=== PATIENT | male | born 1955 | race Caucasian/White ===

== ENCOUNTER 2016-08-04 10:15 | Inpatient (IN) | payer BC ==
[2016-08-04] VITALS (34 sets, daily range): BP systolic 101–154; BP diastolic 68–91
[~2016-08-04] VITALS: Ht 167.6 cm; Wt 87.1 kg
[~2016-08-04 10:15] MED LIST: ASPI-482 PO; LISI-334 PO; PRED-220 PO; RAMI10CA PO; SIMV10TA3 PO
[2016-08-04] MEDS ORDERED: HEPARIN for IV BOLUS 10,000 UNIT/10 ML VIAL. IV ONE (10:30)
[2016-08-04] MEDS ORDERED: fentaNYL PF VIAL 100 MCG/2 ML VIAL IV ONE (10:30)
--- NOTE | 2016-08-04 10:33 | PHYS DOC ---
Adult General Chief Complaint Chief Complaint: NEURO SYMPTOMS/DEFICITS HPI HPI Patient is a 61 year old male presenting to the emergency department for evaluation of expressive aphasia that started suddenly at 9:30 this morning while he was at work. He admits that he has had a prior stroke in December of last year but his right-sided weakness and expressive aphasia completely resolved and he has no residual deficits. The expressive aphasia is fairly severe to the point where he can really tell me his name and I was present during the NIH stroke scale and he cannot complete the reading of his phrases with any fluency. He has an NIH stroke scale of 2. I discussed the risks and benefits of TPA with the patient including and disability and he agreed to TPA as he did not want to have these residual deficits. I spoke to the neurologist sales receptionist Dr. Tejeda and he agreed with TPA as a stroke has been more than 3 months ago. Patient met no absolute contraindications so he was given TPA approximately 2 hours after his onset of symptoms. Review of Systems Review of Systems Constitutional: Denies fever or chills [] Eyes: Denies change in visual acuity, redness, or eye pain [] HENT: Denies nasal congestion or sore throat [] Respiratory: Denies cough or shortness of breath [] Cardiovascular: No additional information not addressed in HPI [] GI: Denies abdominal pain, nausea, vomiting, bloody stools or diarrhea [] : Denies dysuria or hematuria [] Musculoskeletal: Denies back pain or joint pain [] Integument: Denies rash or skin lesions [] Neurologic: Denies headache, focal weakness. + Expressive aphasia Current Medications Current Medications Current Medications Medications (Trade) Dose Ordered Sig/Felicity Start Time Stop Time Status Last Admin Dose Admin Alteplase, Recombinant 69.4 ml @ 69.4 mls/hr Q1H 08/04/16 11:00 08/04/16 11:59 DC 08/04/16 11:20 69.4 MLS/HR Fentanyl Citrate (Fentanyl 2ml Vial) 50 mcg PRN Q2HR PRN 08/04/16 11:00 08/05/16 10:59 Heparin Sodium (Porcine) (Heparin Sodium) 4,000 unit 1X ONCE 08/04/16 10:30 08/04/16 10:34 DC Info (Do NOT chart on this entry -- for MONITORING) 1 each PRN DAILY PRN 08/04/16 11:15 08/06/16 11:14 Iohexol (Omnipaque 300 Mg/ml) 75 ml 1X ONCE 08/04/16 11:15 08/04/16 11:16 DC Labetalol HCl (Normodyne) 10 mg PRN Q10MIN PRN 08/04/16 11:00 Nicardipine HCl 50 mg/Sodium Chloride 270 ml @ 27 mls/hr CONT PRN PRN 08/04/16 11:00 Ondansetron HCl (Zofran) 4 mg PRN Q8HRS PRN 08/04/16 11:00 08/05/16 10:59 Sodium Chloride 50 ml @ 0 mls/hr 1X ONCE 08/04/16 11:00 08/04/16 11:01 DC Allergies Allergies Allergies Coded Allergies Type Severity Reaction Last Updated Verified No Known Drug Allergies 01/12/16 No Physical Exam Physical Exam Constitutional: Well developed, well nourished, no acute distress, non-toxic appearance. [] HENT: Normocephalic, atraumatic, bilateral external ears normal, oropharynx moist, no oral exudates, nose normal. [] Eyes: PERRLA, EOMI, conjunctiva normal, no discharge. [] Neck: Normal range of motion, no tenderness, supple, no stridor. [] Cardiovascular:Heart rate regular rhythm, no murmur [] Lungs & Thorax: Bilateral breath sounds clear to auscultation [] Abdomen: Bowel sounds normal, soft, no tenderness, no masses, no pulsatile masses. [] Skin: Warm, dry, no erythema, no rash. [] Back: No tenderness, no CVA tenderness. [] Extremities: No tenderness, no cyanosis, no clubbing, ROM intact, no edema. [] Neurologic: Alert and oriented X 3, normal motor function. CN 2-12 intact. expressive aphasia. Current Patient Data Vital Signs Vital Signs Date Time Temp Pulse Resp B/P (MAP) Pulse Ox O2 Delivery O2 Flow Rate FiO2 08/04/16 10:15 98.5 85 20 146/93 (110) 97 Room Air 98.5 Lab Values Laboratory Tests Test 08/04/16 10:27 08/04/16 10:28 Glucose (Fingerstick) 114 mg/dL (70-99) H White Blood Count 11.7 x10^3/uL (4.0-11.0) H Red Blood Count 4.91 x10^6/uL (4.30-5.70) Hemoglobin 15.5 g/dL (13.0-17.5) Hematocrit 44.7 % (39.0-53.0) Mean Corpuscular Volume 91 fL (79-100) Mean Corpuscular Hemoglobin 32 pg (25-35) Mean Corpuscular Hemoglobin Concent 35 g/dL (31-37) Red Cell Distribution Width 14.3 % (11.5-14.5) Platelet Count 209 x10^3/uL (140-400) Neutrophils (%) (Auto) 82 % (31-73) H Lymphocytes (%) (Auto) 9 % (24-48) L Monocytes (%) (Auto) 8 % (0-9) Eosinophils (%) (Auto) 1 % (0-3) Basophils (%) (Auto) 1 % (0-3) Neutrophils # (Auto) 9.5 x10^3uL (1.8-7.7) H Lymphocytes # (Auto) 1.1 x10^3/uL (1.0-4.8) Monocytes # (Auto) 0.9 x10^3/uL (0.0-1.1) Eosinophils # (Auto) 0.1 x10^3/uL (0.0-0.7) Basophils # (Auto) 0.1 x10^3/uL (0.0-0.2) Prothrombin Time 12.6 SEC (11.7-14.0) Prothrombin Time INR 1.0 (0.8-1.1) PTT 26 SEC (24-38) Sodium Level 140 mmol/L (136-145) Potassium Level 4.3 mmol/L (3.5-5.1) Chloride Level 105 mmol/L (98-107) Carbon Dioxide Level 24 mmol/L (21-32) Anion Gap 11 (6-14) Blood Urea Nitrogen 26 mg/dL (8-26) Creatinine 1.1 mg/dL (0.7-1.3) Estimated GFR (Cockcroft-Gault) 68.1 BUN/Creatinine Ratio 24 (6-20) H Glucose Level 127 mg/dL (70-99) H Calcium Level 9.1 mg/dL (8.5-10.1) Magnesium Level 2.0 mg/dL (1.8-2.4) Total Bilirubin 0.5 mg/dL (0.2-1.0) Aspartate Amino Transferase (AST) 21 U/L (15-37) Alanine Aminotransferase (ALT) 28 U/L (16-63) Alkaline Phosphatase 81 U/L (46-116) Creatine Kinase 139 U/L (39-308) Troponin I Quantitative < 0.017 ng/mL (0.000-0.055) II-Tzn-M-Type Natriuretic Peptide 114 pg/mL (0-124) Total Protein 7.5 g/dL (6.4-8.2) Albumin 3.8 g/dL (3.4-5.0) Albumin/Globulin Ratio 1.0 (1.0-1.7) Lipase 129 U/L (73-393) Ethyl Alcohol Level < 10 mg/dL (0-10) Laboratory Tests 08/04/16 10:28 Laboratory Tests 08/04/16 10:28 EKG EKG Normal sinus rhythm at 87 bpm with leftward axis no obvious ST elevation or depression and normal T waves. Radiology/Procedures Radiology/Procedures Indication slurred speech. Code stroke. The Noncontrast images of the head were obtained. Note is made of an MRI examination 01/12/2016. No prior noncontrast CT head imaging of the head is available. Preliminary critical results were communicated to Dr. Medina, in the emergency room, at the time of dictation. The calvarium appears unremarkable. The visualized paranasal sinuses appear normal. There is no subdural or epidural hematoma. There is some modest underlying atrophy. There is a lucency in the left deep white matter, just above the lateral ventricle compatible with an old insult as demonstrated on the referenced MRI. No mass or midline shift is seen. No hemorrhage is apparent. No acute finding is seen. IMPRESSION: No acute finding seen on noncontrast images of the head PQRS Compliance Statement: One or more of the following individualized dose reduction techniques were utilized for this examination: 1. Automated exposure control 2. Adjustment of the mA and/or kV according to patient size 3. Use of iterative reconstruction technique DICTATED and SIGNED BY: SOPHIE FERREIRA MD DATE: 08/04/16 1028 Indication suspect CVA. Protocol study. A single view of the chest was obtained. No prior imaging of the chest is available. The heart, pulmonary vessels and mediastinum appear normal. The lungs are clear. There is no pleural fluid or pneumothorax. IMPRESSION: No acute or focal process is seen in the chest DICTATED and SIGNED BY: SOPHIE FERREIRA MD DATE: 08/04/16 1058 Course & Med Decision Making Course & Med Decision Making Patient with acute symptoms that will cause severe morbidity. tpa administered and his expressive aphasia seemed to be improving somewhat. Patient admitted to the ICU in guarded condition. CRITICAL CARE TIME OF 35 MINS. Dragon Disclaimer Dragon Disclaimer This electronic medical record was generated, in whole or in part, using a voice recognition dictation system. Departure Departure Impression: Primary Impression: Acute CVA (cerebrovascular accident) Disposition: ADMITTED INPATIENT Admitting Physician: Other (REUSCH) Condition: GUARDED Referrals: NO PCP (PCP) GEORGE MEDINA DO Aug 04, 2016 10:33
[2016-08-04 10:41] LABS: BASO # 0.1 x10^3/uL (0.0-0.2); BASO % 1 % (0-3); EOS % 1 % (0-3); HEMATOCRIT 44.7 % (39.0-53.0); HEMOGLOBIN 15.5 g/dL (13.0-17.5); LYMPH # 1.1 x10^3/uL (1.0-4.8); LYMPH % 9 % (24-48); MEAN CORPUSCULAR HEMOGLOBIN 32 pg (25-35); MEAN CORPUSCULAR HGB CONC 35 g/dL (31-37); MEAN CORPUSCULAR VOLUME 91 fL (79-100); MONO % 8 % (0-9); NEUT % 82 % (31-73); PLATELET COUNT 209 x10^3/uL (140-400); RED BLOOD COUNT 4.91 x10^6/uL (4.30-5.70); RED CELL DISTRIBUTION WIDTH 14.3 % (11.5-14.5); WHITE BLOOD COUNT 11.7 x10^3/uL (4.0-11.0)
[2016-08-04 10:50] LABS: CALCIUM 9.1 mg/dL (8.5-10.1); CREATININE 1.1 mg/dL (0.7-1.3); GFR 68.1; POTASSIUM 4.3 mmol/L (3.5-5.1); PROTHROMBIN TIME PATIENT 12.6 SEC (11.7-14.0)
[2016-08-04 10:56] LABS: ALBUMIN 3.8 g/dL (3.4-5.0); TOTAL BILIRUBIN 0.5 mg/dL (0.2-1.0); TOTAL PROTEIN 7.5 g/dL (6.4-8.2)
[2016-08-04] MEDS ORDERED: LABETALOL 20 MG/4 ML DISP.SYRIN. IV PRN (11:00)
[2016-08-04] MEDS ORDERED: fentaNYL PF VIAL 100 MCG/2 ML VIAL IV PRN (11:00)
[2016-08-04] MEDS ORDERED: ONDANSETRON PF 4 MG/2 ML VIAL. IV PRN (11:00)
[2016-08-04] MEDS ORDERED: ALTEPLASE 7.7 MG IV ONE (11:00)
[2016-08-04] MEDS ORDERED: IV NORMAL SALINE 50ML 50 ML IV ONE (11:00)
[2016-08-04] MEDS ORDERED: ALTEPLASE IV SCH (11:00)
--- NOTE | 2016-08-04 11:02 | RAD ---
Indication suspect CVA. Protocol study. A single view of the chest was obtained. No prior imaging of the chest is available. The heart, pulmonary vessels and mediastinum appear normal. The lungs are clear. There is no pleural fluid or pneumothorax. IMPRESSION: No acute or focal process is seen in the chest
[2016-08-04] MEDS ORDERED: IOHEXOL 300 MG/ML 75 ML VIAL IV ONE (11:15)
[2016-08-04] MEDS ORDERED: CONTRAST GIVEN MC PRN (11:15)
--- NOTE | 2016-08-04 12:52 | EKG ---
[facility] [address] [place] [address] Test Date: 2016-08-04 Test Time: 10:21:42 Pat Name: GEORGE CASEY Department: Room: 111 1 Gender: M Mill Manager: : 1955 Requested By: GEORGE MEDINA Order Number: [id number] Reading MD: Tamie Townsend Measurements Intervals [place] Rate: 87 P: 54 NC: 138 QRS: 2 QRSD: 94 T: 42 QT: 360 QTc: 434 Interpretive Statements SINUS RHYTHM LEFT ATRIAL ABNORMALITY Electronically Signed On 08-04-2016 21:28:26 CDT by Tamie Townsend
--- NOTE | 2016-08-04 14:28 | ACF ---
Admission Forms Criteria NEUROLOGY GRG Clinical Indications for Admission to Inpatient Care (Place ' X' for any and all applicable criteria): Hospital admission is needed for appropriate care of the patient because of 1 or more of the following: [ ]I. Encephalitis [ ]II. Severe [employer] infections indicated by 1 or more of the following(1)(2)(3) : [ ]a) Intracranial abscess [ ]b) Spinal abscess or myelitis [ ]c) Tuberculous or other nonbacterial, nonviral [employer] infection(8) [ ]III. Vasculitis and 1 or more of the following(14)(15): []a) Altered mental status that is severe or persistent or other acute neurologic change []b) Psychosis []c) Seizure [ ]IV. Status epilepticus or repetitive seizures not controlled with emergent treatment [A] (7)(8) [ ]V. Altered mental status that is severe or persistent [ ]. Transient alteration in consciousness with high-risk etiology; examples include (12)(13): [ ]a) Cardiovascular source [ ]b) Cataplexy [ ]VII. Cerebral aneurysm requiring ANY ONE of the following(14): [ ]a) IV antihypertensives or vasoactive agents [ ]b) Sedation and analgesia for suspected leak [ ]c) Need for external ventricular drainage and cerebral perfusion pressure monitoring [ ]d) Emergent evaluation to determine need for surgical clipping or endovascular coiling by interventional radiology. If surgery is required ( Also use Craniotomy, Supratentorial, for Surgery of Bleeding Intracranial Aneurysm (for bleeding aneurysm) or Craniotomy, Supratentorial (for nonbleeding aneurysm) as appropriate. [X]VIII. New-onset severe neurologic symptom requiring inpatient care indicated by ANY ONE of the following: [X]a) Aphasia(15) [ ]b) Weakness (grade 3 or less) [ ]c) Paralysis (eg, hemiplegia) [ ]d) Spasticity(16) [ ]e) Dystonia [ ]e) Ataxia(17) [ ]f) Amnesia(18) [ ]g) Involuntary movements(19) [ ]h) Vertigo [ ] Visual loss [ ]i) Other severe neurologic finding (eg, papilledema, mass effect on imaging, myoclonus not treatable at alternative level of care (eg, observation care) [ ]IX. Guillain-[place] syndrome(20) [ ]X. Myasthenia gravis crisis or inpatient monitoring need as indicated by 1 or more of the following(21): [ ]a) Intensive treatment (eg, course of plasmapheresis) with inadequate outpatient situation to monitor patients status [ ]b) Inadequate airway protection [ ]c) Respiratory insufficiency requiring intubation or inpatient. monitoring [ ]d) Progressive dysphagia with failure to thrive [ ]XI. Multiple sclerosis or other acute demyelinating disease requiring inpatient care as indicated by 1 or more of the following (22)(23): [ ]a) Acute severe deterioration requiring inpatient treatment (eg, IV steroids, plasmapheresis, close observation) [ ]b) Acute complication requiring inpatient care (eg, sepsis, severe decubitus, aspiration) [ ]XII.Parkinson disease requiring inpatient care (Also use Optimal Recovery Care Criteria or General Recovery Criteria as appropriate) indicated by 1 or more of the following(25): [ ]a) Infection (eg, aspiration pneumonia) not treatable at alternative level of care [ ]b Dehydration that is severe or persistent [ ]c) Life-threatening agitation or psychotic behavior not treatable on emergency, observation care, or alternative level (eg, residential) basis [ ]d) Severe medication withdrawal effects (eg, freezing, neuroleptic malignant syndrome) not responsive to emergency and observation care treatment ( as appropriate) [ ]e) Other severe manifestation not treatable at alternative level of care [ ]XII. Amyotrophic lateral sclerosis with inpatient care needs as indicated by ANY ONE of the following(26): [ ]a) Acute complications (eg, aspiration pneumonia, sepsis ) requiring inpatient care ( see other optimal Recovery Guideline as appropriate) [ ]b) Dehydration that is severe persistent AND artificial support desired [ ]c) Inadequate airway protection AND artificial support desired [ ]d) Severe ventilatory insufficiency AND artificial support desired [ ]XIII. Myasthenia gravis crisis or inpatient monitoring need as indicated by 1 or more of the following(21): [] a) Inadequate airway protection []b) Respiratory insufficiency requiring intubation or inpatient monitoring []c) Progressive dysphagia with failure to thrive []d) Intensive treatment (e.g., course of plasmapheresis) with inadequate outpatient situation to monitor patients status [ ]XIV. Multiple sclerosis or other acute demyelinating disease requiring inpatient care indicated by 1 or more of the following[C](36)(43)(44)(45)(46): []a) Acute severe deterioration requiring inpatient treatment (eg, IV steroids, plasmapheresis, close observation) []b) Acute complication requiring inpatient care (eg, sepsis, severe decubitus, aspiration) [ ]XV. Intracranial hypertension (e.g., pseudotumor cerebri) requiring inpatient care (e.g., acute visual loss, inadequate oral intake) (47)(48)(49) [ ]XVI. Parkinson disease requiring inpatient care (Also use Optimal Recovery Care Criteria or General Recovery Criteria as appropriate) indicated by 1 or more of the following(25): [] a) Infection (e.g., aspiration pneumonia) not treatable at alternative level of care []b) Volume depletion not responsive to emergency and observation care treatment (as appropriate) []c) Life-threatening agitation or psychotic behavior not treatable on emergency, observation care, or alternative level (e.g., residential) basis []d) Severe medication withdrawal effects (e.g., freezing, neuroleptic malignant syndrome) not responsive to emergency and observation care treatment (as appropriate) []e) Other severe manifestation not treatable at alternative level of care [ ]XVII. Amyotrophic lateral sclerosis with inpatient care needs as indicated by1 or more of the following(42): []a) Acute complications (eg, aspiration pneumonia, sepsis) requiring inpatient care (see other Optimal Recovery Guideline or General Recovery Guideline as appropriate) []b) Dehydration that is severe or persistent AND artificial support desired []c) Inadequate airway protection AND artificial support desired []d) Severe ventilatory insufficiency AND artificial support desired [ ]XVIII. Severe myopathy, neuropathy, or other neuromuscular disease indicated by 1 or more of the following(42)(52)(53)(54): []a ) New-onset severe diffuse weakness (eg, strength 3/5 or less) []b) Severe dysphagia []c) Dyspnea at rest or with minimal exertion (new) []d) Inadequate airway protection []e) Inadequate ventilation indicated by 1 or more of the following : i) Partial pressure of carbon dioxide greater than 44 mm Hg ( 5.9 kPa) (new) ii) Reduced peak expiratory flow rate (new) iii) Vital capacity less than 50% of predicted (less than 15 mL/kg) iv) Peak inspiratory force less negative than -30 cm H2O (- 2942 Pa) [ ]XVII.Complications of congenital or degenerative disease (eg, infection, seizures, dehydration, injury) not responsive to emergency and observation care treatment (as appropriate ) [C](16)(29)(30) [ ]XVIII.Suspected or confirmed nerve or muscle toxic injury, including ANY ONE of the following: [ ]a) Rhabdomyolysis(31) i) Acute renal failure ii) Dehydration that is severe or persistent iii) Altered mental status that is severe or persistent iv) Electrolyte abnormality that remains after emergency or observation level care ( as appropriate) [ ]b) Botulism(32) [ ]c) Other severe toxin-induced sign or symptom [ ]XIX. Neurologic trauma requiring inpatient treatment (medical) indicated by ANY ONE of the following(33)(34): [ ]a) Vital signs or neurologic signs more frequently than every 4 hours [ ]b) Hyperosmolar therapy [ ]c) Respiratory monitoring [ ]d) Intracranial pressure monitoring and treatment [ ]e) Stabilization and immobilization device placement (eg, braces, body jacket) [ ]f) Intubation & mechanical ventilation for airway protection or therapeutic hyperventilation [ ]g) Other treatment or monitoring needed that requires inpatient level of care [ ]XX.Complications of neurologic devices (eg, ventricular shunt, neurostimulator) requiring 1 or more of the following(35)(36): [ ]a) IV antibiotics with monitoring while awaiting culture results [ ]b) Monitoring for hydrocephalus [ ]XXI. Neurology condition symptom, or finding for which emergency and observation care have failed or are not considered appropriate. See General Criteria: Observation Care ISC, General Admission Criteria GRG, or Pediatric General Admission Criteria GRG guideline as appropriate. The original [facility] [employer] content created by [facility] has been revised. The portions of the content which have been revised are identified through the use of italic text or in bold, and [facility] has neither reviewed nor approved the modified material. All other unmodified content is copyright [facility] Please see references footnoted in the original [facility] edition 2016 Admission Criteria Met?: Yes YAKELIN MCCLAIN Aug 04, 2016 14:28
--- NOTE | 2016-08-04 14:39 | RAD ---
Indication CVA. Slurred speech. CTA targeted to the major vessels off the arch of the aorta, internal carotid, common carotid arteries and the [place] was performed. Approximately 75 cc of Omnipaque 300 was administered. Images were generated in the sagittal planes and reviewed. Volume rendered images were also generated. Note is made of a noncontrast CT head examination performed approximately 3 hours prior to this exam. No significant finding is seen at either lung apex. The visualized mediastinum appears unremarkable. A significant soft tissue finding in the neck is not seen. There is some mucosal thickening seen associated with the maxillary sinuses left greater than right. Mild sinusitis is not excluded. No significant bony finding is seen. The innominate artery, left common carotid and left subclavian arteries originate unremarkably off the arch of the aorta. The innominate and left common carotid appear to have a common trunk. The innominate artery bifurcates unremarkably into the right common carotid and right subclavian. Those regions of both subclavian arteries which are seen appear unremarkable. The right common carotid is normal. There is no significant plaquing at the bifurcation. There is no stenosis. The internal carotid is unremarkable. The horizontal and cavernous portions appear unremarkable and the supraclinoid segment also appears normal. The left common carotid is also unremarkable. There is no significant calcification at the bifurcation and there is no significant stenosis. Internal carotid also is normal. The horizontal and cavernous and supraclinoid segments appear unremarkable. The vertebrals originate unremarkably off their respective subclavian arteries. The right vertebral is dominant. The basilar artery appears unremarkable. There is no significant anomaly seen at the [place]. The A1 and M1 segments appear unremarkable. Anterior cerebrals are seen. No significant anomaly is seen in the posterior fossa. IMPRESSION: No acute or significant vascular anomaly seen. Note: Stenosis calculations for CT, MR and conventional angiography are based upon determination of the distal ICA diameter in accordance with the NASCET methodology. Stenosis calculations for doppler studies are derived from validated velocity criteria which are known to correlate with NASCET methodology of determining stenosis. .
[2016-08-04 15:07] LABS: CHOLESTEROL/HDL RATIO 4.6
--- NOTE | 2016-08-04 15:14 | PDOC2 ---
CONSULT Date of Consult Date of Consult DATE: 08/04/16 TIME: 15:08 Reason for Consult Reason for Consult: "Stroke. Code History of Present Illness Reason for Visit: This patient is 61-year-old man who presented to emergency room with complaint of expressive aphasia, difficulty speaking. Patient reports he wake up around 4 in the morning he was fine does not have any difficulty speaking he was at work and suddenly he was not able to speak he has been previously evaluated in December 2015 for ischemic stroke.He does not have any history of intracranial hemorrhage. He presented to emergency room as a stroke activation. He was within the window for IV TPA. He did not have any contraindications. Patient agreed to to risk and benefit for IV TPA. Patient was admitted to ICU for further monitoring. Status post-TPA stroke orders side effect were activated. CVA status post TPA. Past Medical History Cardiovascular: HTN GI: No pertinent hx Heme/Onc: No pertinent hx Hepatobiliary: No pertinent hx Psych: No pertinent hx Rheumatologic: Rheumatoid arthritis Infectious disease: No pertinent hx Renal/: No pertinent hx Endocrine: No pertinent hx Past Surgical History Past Surgical History: No pertinent history Family History Family History: No Significant Social History ALCOHOL: rare Drugs: None Current Medications Current Medications Current Medications Fentanyl Citrate (Fentanyl 2ml Vial) 75 mcg 1X ONCE IV ; Start 08/04/16 at 10: 30; Stop 08/04/16 at 10:34; Status DC Heparin Sodium (Porcine) (Heparin Sodium) 4,000 unit 1X ONCE IV ; Start at 10:30; Stop 08/04/16 at 10:34; Status DC Alteplase, Recombinant 7.7 ml @ 462 mls/hr 1X ONCE IV Last administered on t 11:19; Start 08/04/16 at 11:00; Stop 08/04/16 at 11:01; Status DC Alteplase, Recombinant 69.4 ml @ 69.4 mls/hr Q1H IV Last administered on t 11:20; Start 08/04/16 at 11:00; Stop 08/04/16 at 11:59; Status DC Sodium Chloride 50 ml @ 0 mls/hr 1X ONCE IV ; Start 08/04/16 at 11:00; Stop 01/10 at 11:01; Status DC Labetalol HCl (Normodyne) 10 mg PRN Q10MIN PRN IV HYPERTENSION, SEE COMMENTS; Start 08/04/16 at 11:00 Nicardipine HCl 50 mg/Sodium Chloride 270 ml @ 27 mls/hr CONT PRN PRN IV HYPERTENSION, SEE COMMENTS; Start 08/04/16 at 11:00 Ondansetron HCl (Zofran) 4 mg PRN Q8HRS PRN IV NAUSEA/VOMITING; Start 08/04/16 at 11:00; Stop 08/05/16 at 10:59 Fentanyl Citrate (Fentanyl 2ml Vial) 50 mcg PRN Q2HR PRN IV PAIN; Start at 11:00; Stop 08/05/16 at 10:59 Iohexol (Omnipaque 300 Mg/ml) 75 ml 1X ONCE IV Last administered on 08/04/16t 11:15; Start 08/04/16 at 11:15; Stop 08/04/16 at 11:16; Status DC Info (Do NOT chart on this entry -- for MONITORING) 1 each PRN DAILY PRN MC SEE COMMENTS; Start 08/04/16 at 11:15; Stop 08/06/16 at 11:14 Active Scripts Active Aspir 81 (Aspirin) 81 Mg Tablet. 81 Mg PO DAILY Simvastatin 10 Mg Tablet 10 Mg PO QHS Lisinopril 20 Mg Tablet 20 Mg PO DAILY Reported Prednisone 10 Mg Tablet 10 Mg PO DAILY Allergies Allergies: Coded Allergies: No Known Drug Allergies (Unverified , 01/12/16) Physical Exam Physical Exam REVIEW OF SYSTEMS: Otherwise, not [id number] review of systems. PHYSICAL EXAMINATION: General appearance is in acute distress. HEENT: Normocephalic and nontraumatic. Eyes, nose, ears, and throat are unremarkable. Neck is supple. No lymphadenopathy. No crepitus. Cardiovascular: S1, S2, regular rate and rhythm. Pulmonary: Clear to auscultation bilaterally. Abdomen: Bowel sounds are positive. Abdomen is soft, nontender, and nondistended. NEUROLOGICAL EXAMINATION: Alert Oriented to time, place and person. PERRL. EOMI. CN: no focal findings.+ Dysarthria Muscle tone: within normal. Muscle strength: 5 DTR: 1-2 Plantar reflex: Flexor response bilaterally Gait: not examined in bed. Sensory exam: no abnormal findings. No obvious cerebellar signs elicited. Vitals VITALS Vital Signs Date Time Temp Pulse Resp B/P (MAP) Pulse Ox O2 Delivery O2 Flow Rate FiO2 08/04/16 14:00 80 131/69 (89) 94 Room Air 08/04/16 12:30 20 08/04/16 12:13 98.3 98.3 Labs Labs Laboratory Tests Test 08/04/16 10:27 08/04/16 10:28 Glucose (Fingerstick) 114 mg/dL (70-99) White Blood Count 11.7 x10^3/uL (4.0-11.0) Red Blood Count 4.91 x10^6/uL (4.30-5.70) Hemoglobin 15.5 g/dL (13.0-17.5) Hematocrit 44.7 % (39.0-53.0) Mean Corpuscular Volume 91 fL (79-100) Mean Corpuscular Hemoglobin 32 pg (25-35) Mean Corpuscular Hemoglobin Concent 35 g/dL (31-37) Red Cell Distribution Width 14.3 % (11.5-14.5) Platelet Count 209 x10^3/uL (140-400) Neutrophils (%) (Auto) 82 % (31-73) Lymphocytes (%) (Auto) 9 % (24-48) Monocytes (%) (Auto) 8 % (0-9) Eosinophils (%) (Auto) 1 % (0-3) Basophils (%) (Auto) 1 % (0-3) Neutrophils # (Auto) 9.5 x10^3uL (1.8-7.7) Lymphocytes # (Auto) 1.1 x10^3/uL (1.0-4.8) Monocytes # (Auto) 0.9 x10^3/uL (0.0-1.1) Eosinophils # (Auto) 0.1 x10^3/uL (0.0-0.7) Basophils # (Auto) 0.1 x10^3/uL (0.0-0.2) Prothrombin Time 12.6 SEC (11.7-14.0) Prothromb Time International Ratio 1.0 (0.8-1.1) Activated Partial Thromboplast Time 26 SEC (24-38) Sodium Level 140 mmol/L (136-145) Potassium Level 4.3 mmol/L (3.5-5.1) Chloride Level 105 mmol/L (98-107) Carbon Dioxide Level 24 mmol/L (21-32) Anion Gap 11 (6-14) Blood Urea Nitrogen 26 mg/dL (8-26) Creatinine 1.1 mg/dL (0.7-1.3) Estimated GFR (Cockcroft-Gault) 68.1 BUN/Creatinine Ratio 24 (6-20) Glucose Level 127 mg/dL (70-99) Calcium Level 9.1 mg/dL (8.5-10.1) Magnesium Level 2.0 mg/dL (1.8-2.4) Total Bilirubin 0.5 mg/dL (0.2-1.0) Aspartate Amino Transf (AST/SGOT) 21 U/L (15-37) Alanine Aminotransferase (ALT/SGPT) 28 U/L (16-63) Alkaline Phosphatase 81 U/L (46-116) Creatine Kinase 139 U/L (39-308) Troponin I Quantitative < 0.017 ng/mL (0.000-0.055) CB-Rtk-Z-Type Natriuretic Peptide 114 pg/mL (0-124) Total Protein 7.5 g/dL (6.4-8.2) Albumin 3.8 g/dL (3.4-5.0) Albumin/Globulin Ratio 1.0 (1.0-1.7) Triglycerides Level 89 mg/dL (0-150) Cholesterol Level 221 mg/dL (0-200) LDL Cholesterol, Calculated 155 mg/dL (0-100) VLDL Cholesterol, Calculated 18 mg/dL (0-40) Non-HDL Cholesterol Calculated 173 mg/dL (0-129) HDL Cholesterol 48 mg/dL (40-60) Cholesterol/HDL Ratio 4.6 Lipase 129 U/L (73-393) Ethyl Alcohol Level < 10 mg/dL (0-10) Laboratory Tests Test 08/04/16 10:27 08/04/16 10:28 Glucose (Fingerstick) 114 mg/dL (70-99) White Blood Count 11.7 x10^3/uL (4.0-11.0) Red Blood Count 4.91 x10^6/uL (4.30-5.70) Hemoglobin 15.5 g/dL (13.0-17.5) Hematocrit 44.7 % (39.0-53.0) Mean Corpuscular Volume 91 fL (79-100) Mean Corpuscular Hemoglobin 32 pg (25-35) Mean Corpuscular Hemoglobin Concent 35 g/dL (31-37) Red Cell Distribution Width 14.3 % (11.5-14.5) Platelet Count 209 x10^3/uL (140-400) Neutrophils (%) (Auto) 82 % (31-73) Lymphocytes (%) (Auto) 9 % (24-48) Monocytes (%) (Auto) 8 % (0-9) Eosinophils (%) (Auto) 1 % (0-3) Basophils (%) (Auto) 1 % (0-3) Neutrophils # (Auto) 9.5 x10^3uL (1.8-7.7) Lymphocytes # (Auto) 1.1 x10^3/uL (1.0-4.8) Monocytes # (Auto) 0.9 x10^3/uL (0.0-1.1) Eosinophils # (Auto) 0.1 x10^3/uL (0.0-0.7) Basophils # (Auto) 0.1 x10^3/uL (0.0-0.2) Prothrombin Time 12.6 SEC (11.7-14.0) Prothromb Time International Ratio 1.0 (0.8-1.1) Activated Partial Thromboplast Time 26 SEC (24-38) Sodium Level 140 mmol/L (136-145) Potassium Level 4.3 mmol/L (3.5-5.1) Chloride Level 105 mmol/L (98-107) Carbon Dioxide Level 24 mmol/L (21-32) Anion Gap 11 (6-14) Blood Urea Nitrogen 26 mg/dL (8-26) Creatinine 1.1 mg/dL (0.7-1.3) Estimated GFR (Cockcroft-Gault) 68.1 BUN/Creatinine Ratio 24 (6-20) Glucose Level 127 mg/dL (70-99) Calcium Level 9.1 mg/dL (8.5-10.1) Magnesium Level 2.0 mg/dL (1.8-2.4) Total Bilirubin 0.5 mg/dL (0.2-1.0) Aspartate Amino Transf (AST/SGOT) 21 U/L (15-37) Alanine Aminotransferase (ALT/SGPT) 28 U/L (16-63) Alkaline Phosphatase 81 U/L (46-116) Creatine Kinase 139 U/L (39-308) Troponin I Quantitative < 0.017 ng/mL (0.000-0.055) YZ-Fzq-D-Type Natriuretic Peptide 114 pg/mL (0-124) Total Protein 7.5 g/dL (6.4-8.2) Albumin 3.8 g/dL (3.4-5.0) Albumin/Globulin Ratio 1.0 (1.0-1.7) Triglycerides Level 89 mg/dL (0-150) Cholesterol Level 221 mg/dL (0-200) LDL Cholesterol, Calculated 155 mg/dL (0-100) VLDL Cholesterol, Calculated 18 mg/dL (0-40) Non-HDL Cholesterol Calculated 173 mg/dL (0-129) HDL Cholesterol 48 mg/dL (40-60) Cholesterol/HDL Ratio 4.6 Lipase 129 U/L (73-393) Ethyl Alcohol Level < 10 mg/dL (0-10) Assessment/Plan Assessment/Plan This patient is 61-year-old man who presented to emergency room with complaint of expressive aphasia, difficulty speaking. Patient reports he wake up around 4 in the morning he was fine does not have any difficulty speaking he was at work and suddenly he was not able to speak he has been previously evaluated in December 2015 for ischemic stroke.He does not have any history of intracranial hemorrhage. He presented to emergency room as a stroke activation. He was within the window for IV TPA. He did not have any contraindications. Patient agreed to to risk and benefit for IV TPA. Patient was admitted to ICU for further monitoring. Status post-TPA stroke orders side effect were activated. CVA status post TPA. Patient will get MRI brain to further evaluate. CT brain did not show any acute intracranial process. CTA head and neck did not show any acute vascular process. All significant stenosis. If images at 24-hour done did not show any acute hemorrhage patient will be started on antiplatelet agent. Lipid profile statin CTA head and neck. PTOT evaluation 2-D echo with bubble study Continue medical management. DAJA KWAN MD Aug 04, 2016 15:14
[2016-08-04] MEDS ORDERED: SIMVASTATIN 10 MG TABLET PO SCH (21:00)
[2016-08-05] VITALS (19 sets, daily range): BP systolic 101–154; BP diastolic 67–93
--- NOTE | 2016-08-05 02:18 | HP ---
ADMIT DATE: 08/04/2016 CHIEF COMPLAINT: Aphasia. 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 The aphasia was fairly dense, and a discussion with Neurology, a TPA was administered. His language skills returned without any impediment. He is now in the ICU for further monitoring after TPA. PAST MEDICAL HISTORY: CAD status post stent placement in 2002, CVA in 12/2015, hypertension, hypercholesterolemia and rheumatoid arthritis. FAMILY HISTORY: Essentially negative. One brother with congenital heart disease, . SOCIAL HISTORY: Lives with his . Quit smoking one year ago, works in maintenance. No alcohol or drugs. ALLERGIES: No known drug allergies. MEDICATIONS: MAR reconciled with home medications. REVIEW OF SYSTEMS: Aphasia has completely resolved. No other neurological symptoms present. Rest of organ system review is negative as well. PHYSICAL EXAMINATION: VITAL SIGNS: From today show a blood pressure of 122/75, heart rate of 79, and respiratory rate at 20. He is afebrile. GENERAL: This is a 61-year-old obese gentleman, alert and oriented, in no acute distress. HEENT: Shows no scleral icterus. NECK: Supple. LUNGS: Clear. HEART: Regular rate and rhythm. ABDOMEN: Obese, positive bowel sounds. EXTREMITIES: Show no edema. SKIN: Slightly reddened at face and neck. LABORATORY DATA: CBC with a WBC of 11.7, hemoglobin of 15.5, and platelets of 209. Chemistries with a BUN and creatinine of 26 and 1.1. Electrolytes within normal limits. Glucose at 127. LFTs within normal. Cholesterol at 221, LDL at 155. IMAGING STUDIES: CTA of head and neck, no acute or significant vascular anomaly is seen. ASSESSMENT AND PLAN: The patient is a 61-year-old gentleman with sudden onset aphasia consistent with stroke. He is now status post TPA with resolution of his symptoms. No sign of bleeding. Continue monitoring in the Intensive Care Unit for the time being. He had been on aspirin, statin as well as blood pressure medications prior to this event secondary to previous cerebrovascular accident in recent past. Cholesterol still very poorly controlled. We will increase medications. His lipid profile needs to be checked on an outpatient basis. Given his second seizure on baby aspirin, anticipate expansion of regimen to Plavix. We will leave this to Neurology. MRI and echocardiogram with bubble study have been requested. RAI BROWN MD DR: UR/nts JOB#: [id number] / [id number]
[2016-08-05 04:56] LABS: BASO # 0.1 x10^3/uL (0.0-0.2); BASO % 1 % (0-3); EOS % 6 % (0-3); HEMATOCRIT 42.6 % (39.0-53.0); HEMOGLOBIN 14.2 g/dL (13.0-17.5); LYMPH # 2.1 x10^3/uL (1.0-4.8); LYMPH % 23 % (24-48); MEAN CORPUSCULAR HEMOGLOBIN 32 pg (25-35); MEAN CORPUSCULAR HGB CONC 33 g/dL (31-37); MEAN CORPUSCULAR VOLUME 94 fL (79-100); MONO % 13 % (0-9); NEUT % 57 % (31-73); PLATELET COUNT 158 x10^3/uL (140-400); RED BLOOD COUNT 4.52 x10^6/uL (4.30-5.70); WHITE BLOOD COUNT 8.9 x10^3/uL (4.0-11.0)
[2016-08-05 05:12] LABS: CALCIUM 8.5 mg/dL (8.5-10.1); CREATININE 1.1 mg/dL (0.7-1.3); GFR 68.1
[2016-08-05] MEDS ORDERED: LISINOPRIL 20 MG TABLET PO SCH (09:00)
[2016-08-05] MEDS ORDERED: ASPIRIN ENTERIC COATED 81 MG TABLET.DR. PO SCH (09:00)
[2016-08-05] MEDS ORDERED: predniSONE 10 MG TABLET PO SCH (09:00)
--- NOTE | 2016-08-05 12:56 | RAD ---
MRI Brain without contrast History: Slurred speech, right-sided weakness, post TPA Technique: Axial diffusion, axial gradient echo T2, axial T2, axial FLAIR, sagittal and axial T1, and coronal T2 weighted images were acquired of the brain. Contrast: None Comparison: January 12, 2016 Findings: There is a 4 mm focus of restricted diffusion of the left parietal cortex, also 4 mm focus of diffusion signal abnormality of the left frontal cortex difficult to characterize on ADC map, associated mild FLAIR hyperintense signal. There is no midline shift or extra-axial fluid collection. There is no new significant hemosiderin deposition of the brain parenchyma, limited evaluation of the beny due to motion artifact. Ventricular size is stable. There is again mild generalized supratentorial atrophy. There are old lacunar infarcts of the left sierra radiata as seen previously, other scattered mild T2 and FLAIR hyperintense signal abnormality of the supratentorial white matter. There is persistent jywr-ig-ebihgcit left maxillary sinus mucosal thickening, to a lesser degree on the right. There is again mild sphenoid sinus mucosal thickening greater on the left, associated mucous retention cyst on the right inferiorly up to 1.3 cm. There is patchy ethmoid air cell mucosal thickening greatest inferiorly on the right, decreased on the left in the interval. There is patchy mild fluid and thickening of the left mastoid air cells inferiorly as seen previously. Impression: 1. There is a recent very small acute infarct of the left parietal cortex, also small focus of signal abnormality of the left frontal cortex suspicious for recent, likely early subacute infarct. There are other old lacunar infarcts, also other scattered relatively mild T2 and FLAIR hyperintense signal abnormality likely due to chronic microvascular ischemic disease. 2. There is paranasal sinus mucosal thickening as stated. FOR INTERNAL CODING PURPOSES Critical result: Findings discussed with patient's nurse Mery at 08/05/2016 12:52 PM. RESULT CODE: (C) Electronically signed by: Raudel Rey MD (08/05/2016 12:52 PM)
--- NOTE | 2016-08-05 13:17 | CARD ---
APPROVED REPORT EXAM: Two-dimensional and M-mode echocardiogram with Doppler and color Doppler. Other Information Quality : Good INDICATION CVA/TIA 2D DIMENSIONS RVDd2.8 (2.9-3.5cm)Left Atrium(2D)3.4 (1.6-4.0cm) IVSd1.0 (0.7-1.1cm)Aortic Root(2D)3.0 (2.0-3.7cm) LVDd4.9 (3.9-5.9cm)LVOT Diameter2.0 (1.8-2.4cm) PWd1.1 (0.7-1.1cm)LVDs3.0 (2.5-4.0cm) FS (%) 30.0 %SV77.5 ml LVEF(%)60.0 (>50%) Aortic Valve AoV Peak Bob.123.7cm/sAoV VTI20.0cm AO Peak GR.6.1mmHgLVOT VTI 17.09cm AO Mean GR.3mmHgAVA (VTI)2.70cm2 Mitral Valve MV E Ornlcjie55.6cm/sMV DECEL [id number] MV A Tqfetugc26.9cm/sE/A Ratio0.8 TDI Lateral E' P. V8.80cm/sMedial E' P. V8.02cm/s E/Lateral E'7.1E/Medial E'7.8 Pulmonary Vein S1 Wwgerbam36.5cm/sS2 Akepjcxu48.02cm/s D2 Mwhvcphh29.0cm/sPVa [id number] LEFT VENTRICLE The left ventricle is normal size. There is normal left ventricular wall thickness. The left ventricu lar systolic function is normal. The Ejection Fraction is 55-60%. There is normal LV segmental wall m otion. Transmitral Doppler flow pattern is Grade I-abnormal relaxation pattern. RIGHT VENTRICLE The right ventricle is normal size. The right ventricular systolic function is normal. ATRIA The left atrium size is normal. The right atrium size is normal. The interatrial septum is intact wit h no evidence for an atrial septal defect or patent foramen ovale as noted on 2-D or Doppler imaging. AORTIC VALVE The aortic valve is normal in structure and function. Doppler and Color Flow revealed physiological a ortic regurgitation. There is no significant aortic valvular stenosis. MITRAL VALVE The mitral valve is normal in structure and function. There is no evidence of mitral valve prolapse. There is no mitral valve stenosis. Doppler and Color-flow revealed trace to mild mitral regurgitation . TRICUSPID VALVE The tricuspid valve is normal in structure and function. Doppler and Color Flow revealed no tricuspid valve regurgitation noted. There is no tricuspid valve stenosis. PULMONIC VALVE The pulmonary valve is normal in structure and function. Doppler and Color Flow revealed no pulmonic valvular regurgitation. There is no pulmonic valvular stenosis. GREAT VESSELS The aortic root is normal in size. The ascending aorta is normal in size. The IVC is normal in size a nd collapses >50% with inspiration. PERICARDIAL EFFUSION There is no evidence of significant pericardial effusion. Critical Notification Critical Value: No <Conclusion> The left ventricular systolic function is normal. The Ejection Fraction is 55-60%. There is normal LV segmental wall motion. Transmitral Doppler flow pattern is Grade I-abnormal relaxation pattern. Doppler and Color-flow revealed trace to mild mitral regurgitation. There is no evidence of significant pericardial effusion.
[2016-08-05] MEDS ORDERED: CLOPIDOGREL BISULFATE 75 MG TABLET PO SCH (14:00)
--- NOTE | 2016-08-05 14:04 | PDOC ---
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 US carotid pending echo normal LVEF Bedside swallow. PT/OT History of Present Illness History of Present Illness doing better no fever no chills Vitals Vitals Vital Signs Date Time Temp Pulse Resp B/P (MAP) Pulse Ox O2 Delivery O2 Flow Rate FiO2 08/05/16 13:01 65 19 128/80 (96) 97 Room Air 08/05/16 12:15 98.1 98.1 Physical Exam General: Alert, Oriented X3 Heart: Normal S1, Normal S2 Lungs: Clear Abdomen: Normal bowel sounds, Soft Labs LABS Laboratory Tests Test 08/05/16 04:40 White Blood Count 8.9 x10^3/uL (4.0-11.0) Red Blood Count 4.52 x10^6/uL (4.30-5.70) Hemoglobin 14.2 g/dL (13.0-17.5) Hematocrit 42.6 % (39.0-53.0) Mean Corpuscular Volume 94 fL (79-100) Mean Corpuscular Hemoglobin 32 pg (25-35) Mean Corpuscular Hemoglobin Concent 33 g/dL (31-37) Red Cell Distribution Width 14.0 % (11.5-14.5) Platelet Count 158 x10^3/uL (140-400) Neutrophils (%) (Auto) 57 % (31-73) Lymphocytes (%) (Auto) 23 % (24-48) Monocytes (%) (Auto) 13 % (0-9) Eosinophils (%) (Auto) 6 % (0-3) Basophils (%) (Auto) 1 % (0-3) Neutrophils # (Auto) 5.1 x10^3uL (1.8-7.7) Lymphocytes # (Auto) 2.1 x10^3/uL (1.0-4.8) Monocytes # (Auto) 1.1 x10^3/uL (0.0-1.1) Eosinophils # (Auto) 0.5 x10^3/uL (0.0-0.7) Basophils # (Auto) 0.1 x10^3/uL (0.0-0.2) Sodium Level 140 mmol/L (136-145) Potassium Level 4.0 mmol/L (3.5-5.1) Chloride Level 106 mmol/L (98-107) Carbon Dioxide Level 28 mmol/L (21-32) Anion Gap 6 (6-14) Blood Urea Nitrogen 23 mg/dL (8-26) Creatinine 1.1 mg/dL (0.7-1.3) Estimated GFR (Cockcroft-Gault) 68.1 Glucose Level 94 mg/dL (70-99) Calcium Level 8.5 mg/dL (8.5-10.1) Comment Review of Relevant I have reviewed the following items ruth (where applicable) has been applied. Labs Laboratory Tests Test 08/04/16 10:27 08/04/16 10:28 08/05/16 04:40 Glucose (Fingerstick) 114 mg/dL (70-99) White Blood Count 11.7 x10^3/uL (4.0-11.0) 8.9 x10^3/uL (4.0-11.0) Red Blood Count 4.91 x10^6/uL (4.30-5.70) 4.52 x10^6/uL (4.30-5.70) Hemoglobin 15.5 g/dL (13.0-17.5) 14.2 g/dL (13.0-17.5) Hematocrit 44.7 % (39.0-53.0) 42.6 % (39.0-53.0) Mean Corpuscular Volume 91 fL (79-100) 94 fL (79-100) Mean Corpuscular Hemoglobin 32 pg (25-35) 32 pg (25-35) Mean Corpuscular Hemoglobin Concent 35 g/dL (31-37) 33 g/dL (31-37) Red Cell Distribution Width 14.3 % (11.5-14.5) 14.0 % (11.5-14.5) Platelet Count 209 x10^3/uL (140-400) 158 x10^3/uL (140-400) Neutrophils (%) (Auto) 82 % (31-73) 57 % (31-73) Lymphocytes (%) (Auto) 9 % (24-48) 23 % (24-48) Monocytes (%) (Auto) 8 % (0-9) 13 % (0-9) Eosinophils (%) (Auto) 1 % (0-3) 6 % (0-3) Basophils (%) (Auto) 1 % (0-3) 1 % (0-3) Neutrophils # (Auto) 9.5 x10^3uL (1.8-7.7) 5.1 x10^3uL (1.8-7.7) Lymphocytes # (Auto) 1.1 x10^3/uL (1.0-4.8) 2.1 x10^3/uL (1.0-4.8) Monocytes # (Auto) 0.9 x10^3/uL (0.0-1.1) 1.1 x10^3/uL (0.0-1.1) Eosinophils # (Auto) 0.1 x10^3/uL (0.0-0.7) 0.5 x10^3/uL (0.0-0.7) Basophils # (Auto) 0.1 x10^3/uL (0.0-0.2) 0.1 x10^3/uL (0.0-0.2) Prothrombin Time 12.6 SEC (11.7-14.0) Prothromb Time International Ratio 1.0 (0.8-1.1) Activated Partial Thromboplast Time 26 SEC (24-38) Sodium Level 140 mmol/L (136-145) 140 mmol/L (136-145) Potassium Level 4.3 mmol/L (3.5-5.1) 4.0 mmol/L (3.5-5.1) Chloride Level 105 mmol/L (98-107) 106 mmol/L (98-107) Carbon Dioxide Level 24 mmol/L (21-32) 28 mmol/L (21-32) Anion Gap 11 (6-14) 6 (6-14) Blood Urea Nitrogen 26 mg/dL (8-26) 23 mg/dL (8-26) Creatinine 1.1 mg/dL (0.7-1.3) 1.1 mg/dL (0.7-1.3) Estimated GFR (Cockcroft-Gault) 68.1 68.1 BUN/Creatinine Ratio 24 (6-20) Glucose Level 127 mg/dL (70-99) 94 mg/dL (70-99) Calcium Level 9.1 mg/dL (8.5-10.1) 8.5 mg/dL (8.5-10.1) Magnesium Level 2.0 mg/dL (1.8-2.4) Total Bilirubin 0.5 mg/dL (0.2-1.0) Aspartate Amino Transf (AST/SGOT) 21 U/L (15-37) Alanine Aminotransferase (ALT/SGPT) 28 U/L (16-63) Alkaline Phosphatase 81 U/L (46-116) Creatine Kinase 139 U/L (39-308) Troponin I Quantitative < 0.017 ng/mL (0.000-0.055) VK-Vzo-Q-Type Natriuretic Peptide 114 pg/mL (0-124) Total Protein 7.5 g/dL (6.4-8.2) Albumin 3.8 g/dL (3.4-5.0) Albumin/Globulin Ratio 1.0 (1.0-1.7) Triglycerides Level 89 mg/dL (0-150) Cholesterol Level 221 mg/dL (0-200) LDL Cholesterol, Calculated 155 mg/dL (0-100) VLDL Cholesterol, Calculated 18 mg/dL (0-40) Non-HDL Cholesterol Calculated 173 mg/dL (0-129) HDL Cholesterol 48 mg/dL (40-60) Cholesterol/HDL Ratio 4.6 Lipase 129 U/L (73-393) Ethyl Alcohol Level < 10 mg/dL (0-10) Laboratory Tests Test 08/05/16 04:40 White Blood Count 8.9 x10^3/uL (4.0-11.0) Red Blood Count 4.52 x10^6/uL (4.30-5.70) Hemoglobin 14.2 g/dL (13.0-17.5) Hematocrit 42.6 % (39.0-53.0) Mean Corpuscular Volume 94 fL (79-100) Mean Corpuscular Hemoglobin 32 pg (25-35) Mean Corpuscular Hemoglobin Concent 33 g/dL (31-37) Red Cell Distribution Width 14.0 % (11.5-14.5) Platelet Count 158 x10^3/uL (140-400) Neutrophils (%) (Auto) 57 % (31-73) Lymphocytes (%) (Auto) 23 % (24-48) Monocytes (%) (Auto) 13 % (0-9) Eosinophils (%) (Auto) 6 % (0-3) Basophils (%) (Auto) 1 % (0-3) Neutrophils # (Auto) 5.1 x10^3uL (1.8-7.7) Lymphocytes # (Auto) 2.1 x10^3/uL (1.0-4.8) Monocytes # (Auto) 1.1 x10^3/uL (0.0-1.1) Eosinophils # (Auto) 0.5 x10^3/uL (0.0-0.7) Basophils # (Auto) 0.1 x10^3/uL (0.0-0.2) Sodium Level 140 mmol/L (136-145) Potassium Level 4.0 mmol/L (3.5-5.1) Chloride Level 106 mmol/L (98-107) Carbon Dioxide Level 28 mmol/L (21-32) Anion Gap 6 (6-14) Blood Urea Nitrogen 23 mg/dL (8-26) Creatinine 1.1 mg/dL (0.7-1.3) Estimated GFR (Cockcroft-Gault) 68.1 Glucose Level 94 mg/dL (70-99) Calcium Level 8.5 mg/dL (8.5-10.1) Medications Current Medications Fentanyl Citrate (Fentanyl 2ml Vial) 75 mcg 1X ONCE IV ; Start 08/04/16 at 10: 30; Stop 08/04/16 at 10:34; Status DC Heparin Sodium (Porcine) (Heparin Sodium) 4,000 unit 1X ONCE IV ; Start at 10:30; Stop 08/04/16 at 10:34; Status DC Alteplase, Recombinant 7.7 ml @ 462 mls/hr 1X ONCE IV Last administered on t 11:19; Start 08/04/16 at 11:00; Stop 08/04/16 at 11:01; Status DC Alteplase, Recombinant 69.4 ml @ 69.4 mls/hr Q1H IV Last administered on t 11:20; Start 08/04/16 at 11:00; Stop 08/04/16 at 11:59; Status DC Sodium Chloride 50 ml @ 0 mls/hr 1X ONCE IV ; Start 08/04/16 at 11:00; Stop 01/10 at 11:01; Status DC Labetalol HCl (Normodyne) 10 mg PRN Q10MIN PRN IV HYPERTENSION, SEE COMMENTS; Start 08/04/16 at 11:00 Nicardipine HCl 50 mg/Sodium Chloride 270 ml @ 27 mls/hr CONT PRN PRN IV HYPERTENSION, SEE COMMENTS; Start 08/04/16 at 11:00 Ondansetron HCl (Zofran) 4 mg PRN Q8HRS PRN IV NAUSEA/VOMITING; Start 08/04/16 at 11:00; Stop 08/05/16 at 10:59; Status DC Fentanyl Citrate (Fentanyl 2ml Vial) 50 mcg PRN Q2HR PRN IV PAIN; Start at 11:00; Stop 08/05/16 at 10:59; Status DC Iohexol (Omnipaque 300 Mg/ml) 75 ml 1X ONCE IV Last administered on 08/04/16 11:15; Start 08/04/16 at 11:15; Stop 08/04/16 at 11:16; Status DC Info (Do NOT chart on this entry -- for MONITORING) 1 each PRN DAILY PRN MC SEE COMMENTS; Start 08/04/16 at 11:15; Stop 08/06/16 at 11:14 Aspirin (Ecotrin) 81 mg DAILY PO ; Start 08/05/16 at 09:00 Lisinopril (Prinivil) 20 mg DAILY PO Last administered on 08/05/16 09:51; Start 08/05/16 at 09:00 Simvastatin (Zocor) 10 mg QHS PO Last administered on 08/04/16 21:55; Start at 21:00; Stop 08/05/16 at 10:55; Status DC Prednisone (Prednisone) 10 mg DAILY PO Last administered on 08/05/16 09:50; Start 08/05/16 at 09:00 Simvastatin (Zocor) 20 mg QHS PO ; Start 08/05/16 at 21:00 Clopidogrel Bisulfate (Plavix) 75 mg DAILYWBKFT PO ; Start 08/05/16 at 14:00 Active Scripts Active Aspir 81 (Aspirin) 81 Mg Tablet.dr 81 Mg PO DAILY Lisinopril 20 Mg Tablet 20 Mg PO DAILY Reported Prednisone 10 Mg Tablet 10 Mg PO DAILY Vitals/I & O Vital Sign - Last 24 Hours 08/04/16 08/04/16 08/04/16 08/04/16 14:15 14:30 14:45 15:00 Temp 98.6 98.6 Pulse 76 80 84 80 Resp 17 17 18 18 B/P (MAP) 126/84 (98) 126/89 (101) 136/79 (98) Pulse Ox 94 97 94 96 O2 Delivery Room Air Room Air Room Air Room Air 08/04/16 08/04/16 08/04/16 08/04/16 15:15 15:30 15:45 16:00 Pulse 76 72 76 Resp 17 17 17 B/P (MAP) 125/84 (98) 101/85 (90) 131/78 (95) Pulse Ox 94 97 94 O2 Delivery Room Air Room Air Room Air Room Air 08/04/16 08/04/16 08/04/16 08/04/16 16:00 16:15 16:30 16:45 Temp 98.6 98.6 Pulse 72 74 70 72 Resp 20 18 20 17 B/P (MAP) 119/78 (92) 120/76 (91) 133/81 (98) 131/81 (98) Pulse Ox 95 96 94 95 O2 Delivery Room Air Room Air Room Air Room Air 08/04/16 08/04/16 08/04/16 08/04/16 17:00 17:15 17:30 17:45 Pulse 78 72 78 80 Resp 20 19 20 20 B/P (MAP) 139/82 (101) 139/82 (101) 132/79 (96) 152/78 (102) Pulse Ox 96 96 96 97 O2 Delivery Room Air Room Air Room Air Room Air 08/04/16 08/04/16 08/04/16 08/04/16 18:00 18:15 18:30 18:45 Pulse 78 79 82 82 Resp 19 20 20 18 B/P (MAP) 143/84 (103) 107/77 (87) 113/68 (83) 125/72 (89) Pulse Ox 96 95 96 95 O2 Delivery Room Air Room Air Room Air Room Air 08/04/16 08/04/16 08/04/16 08/04/16 19:00 19:15 19:15 19:30 Temp 98.2 98.2 Pulse 79 74 72 Resp 20 20 20 B/P (MAP) 122/75 (91) 110/70 (83) 126/75 (92) Pulse Ox 96 96 96 O2 Delivery Room Air Room Air Room Air Room Air 08/04/16 08/04/16 08/04/16 08/04/16 19:45 20:00 20:15 21:15 Pulse 76 72 72 71 Resp 20 20 20 20 B/P (MAP) 149/87 (107) 154/91 (112) 137/79 (98) 124/72 (89) Pulse Ox 96 97 95 94 O2 Delivery Room Air Room Air Room Air Room Air 08/04/16 08/04/16 08/04/16 08/05/16 22:00 23:00 23:50 00:00 Temp 99.1 99.1 Pulse 70 62 63 Resp 20 20 20 B/P (MAP) 124/72 (89) 119/80 (93) 123/80 (94) Pulse Ox 96 94 94 O2 Delivery Room Air Room Air Room Air Room Air 08/05/16 08/05/16 08/05/16 08/05/16 01:00 02:00 03:00 04:00 Pulse 66 58 60 76 Resp 20 16 16 16 B/P (MAP) 122/80 (94) 101/67 (78) 127/93 (104) 120/85 (97) Pulse Ox 95 94 96 96 O2 Delivery Room Air Room Air Room Air Room Air 08/05/16 08/05/16 08/05/16 08/05/16 04:00 05:00 06:00 08:11 Temp 97.7 98.8 97.7 98.8 Pulse 65 56 65 Resp 16 16 16 B/P (MAP) 122/74 (90) 113/77 (89) 154/90 (111) Pulse Ox 96 99 96 O2 Delivery Room Air Room Air Room Air Room Air 08/05/16 08/05/16 08/05/16 08/05/16 08:15 09:08 09:51 10:09 Pulse 68 68 65 Resp 17 17 B/P (MAP) 143/71 (95) 143/71 132/87 (102) Pulse Ox 96 96 O2 Delivery Room Air Room Air Room Air 08/05/16 08/05/16 08/05/16 08/05/16 11:04 12:15 12:15 13:01 Temp 98.1 98.1 Pulse 79 84 65 Resp 16 19 19 B/P (MAP) 139/85 (103) 136/82 (100) 128/80 (96) Pulse Ox 95 97 97 O2 Delivery Room Air Room Air Room Air Room Air Intake and Output 08/04/16 08/04/16 08/05/16 14:59 22:59 06:59 Intake Total 150 ml 1155 ml 0 ml Balance 150 ml 1155 ml 0 ml TEN VERGARA MD Aug 05, 2016 14:04
[2016-08-05] MEDS ORDERED: CLOP75TA PO (14:07)
--- NOTE | 2016-08-05 18:54 | RAD ---
BILATERAL DUPLEX CAROTID SONOGRAPHY History: CVA. Technique: Duplex sonography of the cervical portion of both carotid arteries was performed. Real-time grayscale, color flow Doppler, and Doppler spectral waveform analysis is performed. Findings: Right side: Peak systolic flow velocity of the CCA is 83 cm/sec. Peak systolic flow velocity of the ICA is 69 cm/sec. The ICA/CCA ratio is 0.8. Peak end diastolic flow velocity of the ICA is 24 cm/sec. The peak systolic velocity of the ECA is 109 cm/sec. Mild echogenic plaque in the carotid bulb. Left side: Peak systolic flow velocity of the CCA is 85 cm/sec. Peak systolic flow velocity of the ICA is 79 cm/sec. The ICA/CCA ratio is 0.9. Peak end diastolic flow velocity of the ICA is 19 cm/sec. Peak systolic flow velocity of the ECA is 90 cm/sec. Mild echogenic plaque in the carotid bulb. Vertebral arteries: Bilateral vertebral arteries demonstrate antegrade flow. IMPRESSION: No hemodynamically significant carotid stenosis identified. PQRS Compliance Statement - Stenosis calculations for CT, MR and conventional angiography are based upon measurement of the distal ICA diameter in accordance with the NASCET methodology. Stenosis calculations for carotid ultrasound studies are derived from validated velocity criteria which are known to correlate with the NASCET methodology. Electronically signed by: Constantino Meeks MD (08/05/2016 6:51 PM)
--- NOTE | 2016-08-05 18:57 | PDOC ---
PROGRESS NOTES Assessment Assessment IMPRESSION: CVA syndrome, s/p TPA on 08/04/16. Acute/subacute left frontal and parietal infracts. Old lacunar infract. HTN RA. RECOMMENDATIONS/PLAN: Plavix 75 mg daily, first dose on 08/05/16 24 hours after TPA. Increased Zocor to 20 mg HS. Treat medical diseases. Carotid A US + Doppler reports still pending. Discussed with his at bedside. Patient education for secondary stroke prevention. SUBJECTIVE: He stated he is doing well and wants to go home. OBJECTIVE: No focalized sensory or motor deficits. Expressive aphasia resolved. Past Medical History Cardiovascular: HTN GI: No pertinent hx Heme/Onc: No pertinent hx Hepatobiliary: No pertinent hx Psych: No pertinent hx Rheumatologic: Rheumatoid arthritis Infectious disease: No pertinent hx Renal/: No pertinent hx Endocrine: No pertinent hx No pertinent history Family History No Significant Social History ALCOHOL: rare Drugs: None ALLERGY: Reviewed. MEDICATIONS: Refer to MAR REVIEW OF SYSTEMS: Constitutional: No malnutrition, weight loss, cachexia. Head: No traumatic brain or head injury. Skin: No edema, or rash. Ear: No infection, tinnitus. Eyes: No vision loss, or diplopia. Nose: No bleeding or purulent discharges. Hearing: No hearing decrease. Neck: No injury. Cardiac: HTN, HLD Pulmonary: No CPOD. GI: No GI Ulcer, GI bleeding Urinary/genital: No dysuria, hematuria, incontinence, urinary retention. Endocrine: No cousin face, craniofacial dysmorphism, polydactyly Skeletomuscular: No muscular atrophy, deformity. Neurological: see HP. Psychiatric: Denies drug use/abuse. Otherwise, not [id number] review of systems. PHYSICAL EXAMINATION: General appearance in no acute distress. HEENT: Normocephalic and nontraumatic. Eyes, nose, ears, and throat are unremarkable. Hearing decrease. Neck is supple. No lymphadenopathy. No bruits are heard over the carotid artery. No Crepitus. Cardiovascular: S1, S2, regular rate and rhythm. Pulmonary: Clear to auscultation bilaterally. Abdomen: Bowel sounds are positive. Abdomen is soft, nontender, and nondistended. Extremities: No rash, lesions, or edema. No restriction of range of motion NEUROLOGICAL EXAMINATION: Alert. Oriented to time, place and person. PERRL. EOMI. CN: no focal findings. Muscle tone: within normal. Muscle strength: 5 DTR: 2 Plantar reflex: Flexor response bilaterally Gait: not examined in bed. Sensory exam: no abnormal findings. No cerebellar signs elicited. F-T-N test accurate. Objective Objective Vital Signs Date Time Temp Pulse Resp B/P (MAP) Pulse Ox O2 Delivery O2 Flow Rate FiO2 08/05/16 18:17 81 22 112/71 (85) 96 Room Air 08/05/16 12:15 98.1 98.1 Intake and Output 08/05/16 07:00 Intake Total 1305 ml Balance 1305 ml Intake Oral 1305 ml # Voids 2 Vitals Signs Vitals VS - Last 72 Hours, by Label Date Time Temp Pulse Resp B/P (MAP) Pulse Ox O2 Delivery O2 Flow Rate FiO2 08/05/16 18:17 81 22 112/71 (85) 96 Room Air 08/05/16 17:08 73 20 122/74 (90) 96 Room Air 08/05/16 16:00 Room Air 08/05/16 16:00 63 16 108/74 (85) 96 Room Air 08/05/16 15:15 69 20 128/83 (98) 97 Room Air 08/05/16 14:15 68 19 110/67 (81) 97 Room Air 08/05/16 13:01 65 19 128/80 (96) 97 Room Air 08/05/16 12:15 98.1 84 19 136/82 (100) 97 Room Air 98.1 08/05/16 12:15 Room Air 08/05/16 11:04 79 16 139/85 (103) 95 Room Air 08/05/16 10:09 65 17 132/87 (102) 96 Room Air 08/05/16 09:51 68 143/71 08/05/16 09:08 68 17 143/71 (95) 96 Room Air 08/05/16 08:15 Room Air 08/05/16 08:11 98.8 65 16 154/90 (111) 96 Room Air 98.8 08/05/16 06:00 56 16 113/77 (89) 99 Room Air 08/05/16 05:00 97.7 65 16 122/74 (90) 96 Room Air 97.7 08/05/16 04:00 Room Air 08/05/16 04:00 76 16 120/85 (97) 96 Room Air 08/05/16 03:00 60 16 127/93 (104) 96 Room Air 08/05/16 02:00 58 16 101/67 (78) 94 Room Air 08/05/16 01:00 66 20 122/80 (94) 95 Room Air 08/05/16 00:00 63 20 123/80 (94) 94 Room Air 08/04/16 23:50 Room Air 08/04/16 23:00 99.1 62 20 119/80 (93) 94 Room Air 99.1 08/04/16 22:00 70 20 124/72 (89) 96 Room Air 08/04/16 21:15 71 20 124/72 (89) 94 Room Air 08/04/16 20:15 72 20 137/79 (98) 95 Room Air 08/04/16 20:00 72 20 154/91 (112) 97 Room Air 08/04/16 19:45 76 20 149/87 (107) 96 Room Air 08/04/16 19:30 72 20 126/75 (92) 96 Room Air 08/04/16 19:15 98.2 74 20 110/70 (83) 96 Room Air 98.2 08/04/16 19:15 Room Air 08/04/16 19:00 79 20 122/75 (91) 96 Room Air 08/04/16 18:45 82 18 125/72 (89) 95 Room Air 08/04/16 18:30 82 20 113/68 (83) 96 Room Air 08/04/16 18:15 79 20 107/77 (87) 95 Room Air 08/04/16 18:00 78 19 143/84 (103) 96 Room Air 08/04/16 17:45 80 20 152/78 (102) 97 Room Air 08/04/16 17:30 78 20 132/79 (96) 96 Room Air 08/04/16 17:15 72 19 139/82 (101) 96 Room Air 08/04/16 17:00 78 20 139/82 (101) 96 Room Air 08/04/16 16:45 72 17 131/81 (98) 95 Room Air 08/04/16 16:30 70 20 133/81 (98) 94 Room Air 08/04/16 16:15 74 18 120/76 (91) 96 Room Air 08/04/16 16:00 98.6 72 20 119/78 (92) 95 Room Air 98.6 08/04/16 16:00 Room Air 08/04/16 15:45 76 17 131/78 (95) 94 Room Air 08/04/16 15:30 72 17 101/85 (90) 97 Room Air 08/04/16 15:15 76 17 125/84 (98) 94 Room Air 08/04/16 15:00 98.6 80 18 136/79 (98) 96 Room Air 98.6 08/04/16 14:45 84 18 94 Room Air 08/04/16 14:30 80 17 126/89 (101) 97 Room Air 08/04/16 14:15 76 17 126/84 (98) 94 Room Air 08/04/16 14:00 80 131/69 (89) 94 Room Air 08/04/16 13:45 79 97 Room Air 08/04/16 13:30 76 96 Room Air 08/04/16 13:15 76 135/83 (100) 98 Room Air 08/04/16 13:00 78 120/82 (95) 96 Room Air 08/04/16 12:45 80 121/72 (88) 96 Room Air 08/04/16 12:30 70 20 135/87 (103) 95 Room Air 08/04/16 12:13 98.3 70 20 135/87 (103) 95 Room Air 98.3 08/04/16 12:00 98.3 70 19 139/89 (106) 97 Room Air 98.3 08/04/16 12:00 Room Air 08/04/16 11:45 76 20 141/86 (104) 94 08/04/16 11:29 80 20 141/86 (104) 95 Room Air 08/04/16 10:15 98.5 85 20 146/93 (110) 97 Room Air 98.5 Laboratory Laboratory Laboratory Tests Test 08/05/16 04:40 White Blood Count 8.9 x10^3/uL (4.0-11.0) Red Blood Count 4.52 x10^6/uL (4.30-5.70) Hemoglobin 14.2 g/dL (13.0-17.5) Hematocrit 42.6 % (39.0-53.0) Mean Corpuscular Volume 94 fL (79-100) Mean Corpuscular Hemoglobin 32 pg (25-35) Mean Corpuscular Hemoglobin Concent 33 g/dL (31-37) Red Cell Distribution Width 14.0 % (11.5-14.5) Platelet Count 158 x10^3/uL (140-400) Neutrophils (%) (Auto) 57 % (31-73) Lymphocytes (%) (Auto) 23 % (24-48) Monocytes (%) (Auto) 13 % (0-9) Eosinophils (%) (Auto) 6 % (0-3) Basophils (%) (Auto) 1 % (0-3) Neutrophils # (Auto) 5.1 x10^3uL (1.8-7.7) Lymphocytes # (Auto) 2.1 x10^3/uL (1.0-4.8) Monocytes # (Auto) 1.1 x10^3/uL (0.0-1.1) Eosinophils # (Auto) 0.5 x10^3/uL (0.0-0.7) Basophils # (Auto) 0.1 x10^3/uL (0.0-0.2) Sodium Level 140 mmol/L (136-145) Potassium Level 4.0 mmol/L (3.5-5.1) Chloride Level 106 mmol/L (98-107) Carbon Dioxide Level 28 mmol/L (21-32) Anion Gap 6 (6-14) Blood Urea Nitrogen 23 mg/dL (8-26) Creatinine 1.1 mg/dL (0.7-1.3) Estimated GFR (Cockcroft-Gault) 68.1 Glucose Level 94 mg/dL (70-99) Calcium Level 8.5 mg/dL (8.5-10.1) Medication Medications Current Medications Aspirin (Ecotrin) 81 mg DAILY PO ; Start 08/05/16 at 09:00 Clopidogrel Bisulfate (Plavix) 75 mg DAILYWBKFT PO Last administered on 17:43; Start 08/05/16 at 14:00 Lisinopril (Prinivil) 20 mg DAILY PO Last administered on 08/05/16 09:51; Start 08/05/16 at 09:00 Prednisone (Prednisone) 10 mg DAILY PO Last administered on 08/05/16 09:50; Start 08/05/16 at 09:00 Simvastatin (Zocor) 10 mg QHS PO Last administered on 08/04/16t 21:55; Start at 21:00; Stop 08/05/16 at 10:55; Status DC Simvastatin (Zocor) 20 mg QHS PO ; Start 08/05/16 at 21:00 Comment Review of Relevant I have reviewed the following items ruth (where applicable) has been applied. SWETA LUND MD Aug 05, 2016 18:57
[2016-08-05] MEDS ORDERED: SIMVASTATIN 20 MG TABLET PO SCH (21:00)
== END 2016-08-05 20:00 | disposition home or self-care (01) | DRG 63 ==
LOC: ER 10:15 → 1 WEST ICU 11:18
PROVIDERS: ADMIT Internal Medicine Hematology & Oncology; ATTEND Internal Medicine Hematology & Oncology
DX: I63.9 Cerebral infarction, unspecified (principal); E78.00 Pure hypercholesterolemia, unspecified; I10 Essential (primary) hypertension; I25.10 Atherosclerotic heart disease of native coronary artery without angina pectoris; M06.9 Rheumatoid arthritis, unspecified; E66.9 Obesity, unspecified; Z95.5 Presence of coronary angioplasty implant and graft; Z79.02 Long term (current) use of antithrombotics/antiplatelets; Z82.49 Family history of ischemic heart disease and other diseases of the circulatory system; Z87.891 Personal history of nicotine dependence; Z68.31 Body mass index [BMI] 31.0-31.9, adult
CPT/HCPCS: 36415; 37195; 70450; 70496; 70498; 70551; 71010; 80048; 80053; 80061; 82550; 82962; 83690; 83735; 83880; 84484; 85027; 85610; 85730; 87641; 93005; 93306; 93880; G0480; J2997; J7512; Q9967; 92610; 99291-25

== ENCOUNTER 2018-08-11 13:33 | Emergency (ER) | payer BC ==
[~2018-08-11] VITALS: Ht 167.6 cm; Wt 87.1 kg
[~2018-08-11 13:33] MED LIST changes: +CLOP75TA PO; -RAMI10CA PO; +RAMI10CA53 PO
[2018-08-11] MEDS ORDERED: IV NORMAL SALINE 1000ML BAG 1,000 ML IV SCH (14:47)
--- NOTE | 2018-08-11 14:59 | PHYS DOC ---
Past Medical History Past Medical History: Arthritis, CVA, Hypertension, [place] Past Surgical History: Other Additional Past Surgical Histo: prostate Alcohol Use: Occasionally Drug Use: None Adult General Chief Complaint Chief Complaint: abdominal pain HPI HPI Patient is a 63 year old male who presents with complaining of abdominal pain. Patient complaining of intermittent episodes of lower abdominal pain for the last 3 weeks as an aching pain without radiation that usually last about 2-3 days as a constant pain associated with nausea, anorexia, generalized weakness, dizziness, weight loss, diarrhea with black stool. Patient states the pain repeated every 2-3 days and does not have any symptom when he doesn't have pain. Patient states he was seen by his primary care physician yesterday and treated with some medication without improvement of his pain. She denies history of the same problem. Patient had colonoscopy more than 10 years ago. Patient currently taking Plavix. Review of Systems Review of Systems Constitutional: Denies fever or chills [] Eyes: Denies change in visual acuity, redness, or eye pain [] HENT: Denies nasal congestion or sore throat [] Respiratory: Denies cough or shortness of breath [] Cardiovascular: No additional information not addressed in HPI [] GI: Reports abdominal pain, nausea, bloody stools or diarrhea, denies vomiting and constipation. : Denies dysuria or hematuria [] Musculoskeletal: Denies back pain or joint pain [] Integument: Denies rash or skin lesions [] Neurologic: Denies headache, focal weakness or sensory changes [] Endocrine: Denies polyuria or polydipsia [] All other systems were reviewed and found to be within normal limits, except as documented in this note. Current Medications Current Medications Current Medications Medications (Trade) Dose Ordered Sig/Felicity Start Time Stop Time Status Last Admin Dose Admin Info (CONTRAST GIVEN -- Rx MONITORING) 1 each PRN DAILY PRN 08/11/18 15:15 08/13/18 15:14 Iohexol (Omnipaque 240 Mg/ml) 30 ml 1X ONCE 08/11/18 15:00 08/11/18 15:03 DC 08/11/18 15:00 30 ML Iohexol (Omnipaque 300 Mg/ml) 75 ml 1X ONCE 08/11/18 15:00 08/11/18 15:03 DC 08/11/18 15:00 60 ML Sodium Chloride 1,000 ml @ 1,000 mls/hr Q1H 08/11/18 14:47 08/11/18 15:46 DC 08/11/18 15:20 1,000 MLS/HR Allergies Allergies Allergies Coded Allergies Type Severity Reaction Last Updated Verified No Known Drug Allergies 01/12/16 No Physical Exam Physical Exam Constitutional: Well developed, well nourished, no acute distress, non-toxic alee earance, no pallor. [] HENT: Normocephalic, atraumatic, oropharynx moist, no oral exudates, nose normal. [] Eyes: PERRLA, EOMI, conjunctiva normal, no discharge. [] Neck: Normal range of motion, no tenderness, supple, no stridor. [] Cardiovascular:Heart rate regular rhythm, no murmur [] Lungs & Thorax: Bilateral breath sounds clear to auscultation [] Abdomen: Bowel sounds normal, soft, no tenderness, no masses, no pulsatile masses. [] Skin: Warm, dry, no erythema, no rash. [] Back: No tenderness, no CVA tenderness. [] Extremities: No tenderness, no cyanosis, no clubbing, ROM intact, no edema. [] Neurologic: Alert and oriented X 3, left facial droop, normal sensory function, no focal deficits noted. [] Psychologic: Affect normal, judgement normal, mood normal. [] Current Patient Data Vital Signs Vital Signs Date Time Temp Pulse Resp B/P (MAP) Pulse Ox O2 Delivery O2 Flow Rate FiO2 08/11/18 15:50 102 16 132/74 (93) 96 Room Air 08/11/18 13:50 97.4 97.4 Lab Values Laboratory Tests Test 08/11/18 15:20 08/11/18 17:30 White Blood Count 10.3 x10^3/uL (4.0-11.0) Red Blood Count 4.82 x10^6/uL (4.30-5.70) Hemoglobin 15.9 g/dL (13.0-17.5) Hematocrit 46.2 % (39.0-53.0) Mean Corpuscular Volume 96 fL (79-100) Mean Corpuscular Hemoglobin 33 pg (25-35) Mean Corpuscular Hemoglobin Concent 34 g/dL (31-37) Red Cell Distribution Width 12.2 % (11.5-14.5) Platelet Count 148 x10^3/uL (140-400) Neutrophils (%) (Auto) 74 % (31-73) H Lymphocytes (%) (Auto) 11 % (24-48) L Monocytes (%) (Auto) 13 % (0-9) H Eosinophils (%) (Auto) 1 % (0-3) Basophils (%) (Auto) 1 % (0-3) Neutrophils # (Auto) 7.6 x10^3uL (1.8-7.7) Lymphocytes # (Auto) 1.1 x10^3/uL (1.0-4.8) Monocytes # (Auto) 1.3 x10^3/uL (0.0-1.1) H Eosinophils # (Auto) 0.1 x10^3/uL (0.0-0.7) Basophils # (Auto) 0.1 x10^3/uL (0.0-0.2) Prothrombin Time 12.6 SEC (11.7-14.0) Prothrombin Time INR 1.0 (0.8-1.1) Sodium Level 138 mmol/L (136-145) Potassium Level 4.6 mmol/L (3.5-5.1) Chloride Level 103 mmol/L (98-107) Carbon Dioxide Level 25 mmol/L (21-32) Anion Gap 10 (6-14) Blood Urea Nitrogen 46 mg/dL (8-26) H Creatinine 1.5 mg/dL (0.7-1.3) H Estimated GFR (Cockcroft-Gault) 47.3 BUN/Creatinine Ratio 31 (6-20) H Glucose Level 120 mg/dL (70-99) H Calcium Level 8.5 mg/dL (8.5-10.1) Total Bilirubin 0.3 mg/dL (0.2-1.0) Aspartate Amino Transferase (AST) 25 U/L (15-37) Alanine Aminotransferase (ALT) 42 U/L (16-63) Alkaline Phosphatase 82 U/L (46-116) Troponin I Quantitative < 0.017 ng/mL (0.000-0.055) XM-Fus-Z-Type Natriuretic Peptide 54 pg/mL (0-124) Total Protein 7.3 g/dL (6.4-8.2) Albumin 3.5 g/dL (3.4-5.0) Albumin/Globulin Ratio 0.9 (1.0-1.7) L Lipase 160 U/L (73-393) Urine Collection Type Unknown Urine Color Yellow Urine Clarity Cloudy Urine pH 5.0 Urine Specific [place] >=1.030 Urine Protein Negative mg/dL (NEG-TRACE) Urine Glucose (UA) 250 mg/dL (NEG) Urine Ketones (Stick) Trace mg/dL (NEG) Urine Blood Negative (NEG) Urine Nitrite Negative (NEG) Urine Bilirubin Negative (NEG) Urine Urobilinogen Dipstick 1.0 mg/dL (0.2 mg/dL) Urine Leukocyte Esterase Negative (NEG) Urine RBC 0 /HPF (0-2) Urine WBC 0 /HPF (0-4) Urine Squamous Epithelial Cells Occ /LPF Urine Bacteria 0 /HPF (0-FEW) Laboratory Tests 08/11/18 15:20 Laboratory Tests 08/11/18 15:20 EKG EKG EKG interpreted by me. EKG at 1744 showed sinus rhythm at rate of 82, with PVCs, no acute ST and T-wave abnormalities Radiology/Procedures Radiology/Procedures [facility] [address] [place] [address] IMAGING REPORT Signed PATIENT: GEORGE CASEY ACCOUNT: [id number] : 1955 LOCATION: ER AGE: 63 SEX: M EXAM STATUS: REG ER ORD. PHYSICIAN: KAILEY SHIN MD REASON: lower abdominal pain for 3 weeks PROCEDURE: CT ABD PELV W/ORAL&IV CONTRAST CT ABD PELV W/ORAL IV CONTRAST Indication: Lower abdominal pain for 3 weeks. Exposure: One or more of the following individualized dose reduction techniques were utilized for this examination: 1. Automated exposure control 2. Adjustment of the mA and/or kV according to patient size 3. Use of iterative reconstruction technique. Technique: Intravenous contrast was given. No oral contrast per request. Lung bases are clear. Liver demonstrates a tiny hypodense lesion at the surface of the anterior right lobe measures 7 mm, too small to characterize but would most commonly be benign. Spleen is mildly enlarged, 13 cm. The pancreas is unremarkable. No evidence of adrenal mass. Kidneys demonstrate symmetric enhancement. No hydronephrosis. Hypodense lesion at the posterior lower pole of the right kidney measures 15 mm diameter. Measures 30 Hounsfield units, greater than a simple cyst. No calcified gallstone. The aorta is mildly calcified. No evidence of aneurysm. No significant lymph node enlargement. No significant small bowel distention. Colonic diverticulosis. Mild sigmoid colon wall thickening likely related to diverticular disease. No evidence of pericolonic fatty stranding to suggest acute colitis. The appendix appears normal. No evidence of pneumoperitoneum. No significant ascites. No significant urinary bladder wall thickening. No evidence of pelvic mass. Degenerative changes of the spine. Transitional anatomy at the lumbosacral junction. There is lumbar stenosis. IMPRESSION: 1. Sigmoid diverticulosis, mild wall thickening but no definite acute colitis. 2. Right lower pole renal lesion measures 15 mm and greater than simple density characteristics. This could represent a hemorrhagic cyst but other etiology is not excludable. Recommend nonemergent renal ultrasound for further evaluation. 3. Mild splenomegaly. 4. Tiny low-density hepatic lesion would most commonly be benign Electronically signed by: Yeison Cobb MD (08/11/2018 4:53 PM) [facility] DICTATED and SIGNED BY: YEISON COBB MD DATE: 08/11/181652 Course & Med Decision Making Course & Med Decision Making Pertinent Labs and Imaging studies reviewed. (See chart for details) Evaluation of patient in ER showed 63-year-old male patient with complaining of intermittent episodes of lower abdominal pain for 3 weeks. Patient had unremarkable physical exam and labs and CT of abdomen and pelvis except for diverticulosis and a small renal cyst. Patient had 1 episode of atrial fibrillation with RVR at rate of 140 that his office spontaneously without any treatment and states his physician told him that he had irregular heartbeat. Patient refused hospitalization and wants to follow up with his primary care physician. Dragon Disclaimer Dragon Disclaimer This electronic medical record was generated, in whole or in part, using a voice recognition dictation system. 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
[2018-08-11] MEDS ORDERED: IOHEXOL 240 MG/ML 50ML VIAL. PO ONE (15:00)
[2018-08-11] MEDS ORDERED: IOHEXOL 300 MG/ML 100ML VIAL. IV ONE (15:00)
[2018-08-11] MEDS ORDERED: CONTRAST GIVEN. MC PRN (15:15)
[2018-08-11 15:35] LABS: BASO # 0.1 x10^3/uL (0.0-0.2); BASO % 1 % (0-3); EOS # 0.1 x10^3/uL (0.0-0.7); EOS % 1 % (0-3); HEMATOCRIT 46.2 % (39.0-53.0); HEMOGLOBIN 15.9 g/dL (13.0-17.5); LYMPH # 1.1 x10^3/uL (1.0-4.8); LYMPH % 11 % (24-48); MEAN CORPUSCULAR HEMOGLOBIN 33 pg (25-35); MEAN CORPUSCULAR HGB CONC 34 g/dL (31-37); MEAN CORPUSCULAR VOLUME 96 fL (79-100); MONO # 1.3 x10^3/uL (0.0-1.1); MONO % 13 % (0-9); NEUT # 7.6 x10^3uL (1.8-7.7); NEUT % 74 % (31-73); PLATELET COUNT 148 x10^3/uL (140-400); RED BLOOD COUNT 4.82 x10^6/uL (4.30-5.70); RED CELL DISTRIBUTION WIDTH 12.2 % (11.5-14.5); WHITE BLOOD COUNT 10.3 x10^3/uL (4.0-11.0)
[2018-08-11 15:50] LABS: PROTHROMBIN TIME PATIENT 12.6 SEC (11.7-14.0)
[2018-08-11 15:57] LABS: CALCIUM 8.5 mg/dL (8.5-10.1); CREATININE 1.5 mg/dL (0.7-1.3); GFR 47.3; POTASSIUM 4.6 mmol/L (3.5-5.1)
[2018-08-11 16:08] LABS: ALBUMIN 3.5 g/dL (3.4-5.0); ALBUMIN/GLOBULIN RATIO 0.9 (1.0-1.7); TOTAL BILIRUBIN 0.3 mg/dL (0.2-1.0); TOTAL PROTEIN 7.3 g/dL (6.4-8.2)
--- NOTE | 2018-08-11 16:55 | RAD ---
CT ABD PELV W/ORAL IV CONTRAST Indication: Lower abdominal pain for 3 weeks. Exposure: One or more of the following individualized dose reduction techniques were utilized for this examination: 1. Automated exposure control 2. Adjustment of the mA and/or kV according to patient size 3. Use of iterative reconstruction technique. Technique: Intravenous contrast was given. No oral contrast per request. Lung bases are clear. Liver demonstrates a tiny hypodense lesion at the surface of the anterior right lobe measures 7 mm, too small to characterize but would most commonly be benign. Spleen is mildly enlarged, 13 cm. The pancreas is unremarkable. No evidence of adrenal mass. Kidneys demonstrate symmetric enhancement. No hydronephrosis. Hypodense lesion at the posterior lower pole of the right kidney measures 15 mm diameter. Measures 30 Hounsfield units, greater than a simple cyst. No calcified gallstone. The aorta is mildly calcified. No evidence of aneurysm. No significant lymph node enlargement. No significant small bowel distention. Colonic diverticulosis. Mild sigmoid colon wall thickening likely related to diverticular disease. No evidence of pericolonic fatty stranding to suggest acute colitis. The appendix appears normal. No evidence of pneumoperitoneum. No significant ascites. No significant urinary bladder wall thickening. No evidence of pelvic mass. Degenerative changes of the spine. Transitional anatomy at the lumbosacral junction. There is lumbar stenosis. IMPRESSION: 1. Sigmoid diverticulosis, mild wall thickening but no definite acute colitis. 2. Right lower pole renal lesion measures 15 mm and greater than simple density characteristics. This could represent a hemorrhagic cyst but other etiology is not excludable. Recommend nonemergent renal ultrasound for further evaluation. 3. Mild splenomegaly. 4. Tiny low-density hepatic lesion would most commonly be benign Electronically signed by: Yeison Cobb MD (08/11/2018 4:53 PM) [facility]
[2018-08-11 17:37] LABS: BILIRUBIN,URINE NEGATIVE (NEG); CLARITY,URINE CLOUDY; COLOR,URINE YELLOW; NITRITE,URINE NEGATIVE (NEG); PROTEIN,URINE NEGATIVE (NEG-TRACE)
--- NOTE | 2018-08-11 18:01 | EKG ---
[facility] [address] [place] [address] Test Date: 2018-08-11 Test Time: 17:44:06 Pat Name: GEORGE CASEY Department: Room: Gender: M Plant Operations Manager: : 1955 Requested By: KAILEY SHIN Order Number: [id number] Reading MD: Measurements Intervals [place] Rate: 82 P: 38 CA: 132 QRS: 1 QRSD: 92 T: 28 QT: 384 QTc: 452 Interpretive Statements SINUS RHYTHM ATRIAL PREMATURE COMPLEX(ES) INTERPOLATED ATRIAL PREMATURE COMPLEX(ES) QRS(T) CONTOUR ABNORMALITY CONSISTENT WITH INFERIOR INFARCT PROBABLY OLD ST & T ABNORMALITY, CONSIDER ANTEROLATERAL ISCHEMIA OR LEFT VENTRICULAR STRAIN ABNORMAL ECG RI6.01 Unconfirmed report No previous ECG available for comparison
[2018-08-11] MEDS ORDERED: TRAM-48 PO (18:15)
[2018-08-11 18:16] LABS: BACTERIA,URINE 0 /HPF (0-FEW); RBC,URINE 0 /HPF (0-2); SQUAMOUS EPITHELIAL CELL,UR OCC /LPF; WBC,URINE 0 /HPF (0-4)
[2018-08-11 18:20] VITALS: BP 125/79
== END 2018-08-11 18:43 | disposition home or self-care (01) ==
LOC: ER 13:33
DX: K57.32 Diverticulitis of large intestine without perforation or abscess without bleeding (principal); I48.91 Unspecified atrial fibrillation; N28.1 Cyst of kidney, acquired; K92.1 Melena; R19.7 Diarrhea, unspecified; R42 Dizziness and giddiness; R53.1 Weakness; R63.4 Abnormal weight loss; R29.810 Facial weakness; R16.1 Splenomegaly, not elsewhere classified; M19.90 Unspecified osteoarthritis, unspecified site; I25.2 Old myocardial infarction; I10 Essential (primary) hypertension; Z86.73 Personal history of transient ischemic attack (TIA), and cerebral infarction without residual deficits
CPT/HCPCS: 36415; 74177; 80053; 81001; 83690; 83880; 84484; 85025; 85610; 93005; 96360; 99285; J7030; Q9966; Q9967

== ENCOUNTER → 2018-09-01 | Day surgery (SDC) | payer BC ==
[~2018-09-01] MED LIST changes: +IV RINGERS,LACTATED 1000ML 1,000 ML IV SCH; +LIDOCAINE 2% PF 5 ML VIAL. ONE; +PROPOFOL 40 ML IV ONE; +TRAM-48 PO
[2018-09-01 17:40] VITALS: BP 143/67
--- NOTE | 2018-09-03 15:07 | PATHOLOGY ---
[facility] Accession Number: [id number] . 01 Material submitted: . colon - TRANSVERSE COLON POLYP. Modifiers: transverse . 01 Clinical history: . Melena, weight loss, diarrhea . 02 Diagnosis: Colon, transverse, biopsy: - Adenomatous polyp. (SKM/db; 09/03/2018) LBQ/09/03/2018 . 02 Electronically signed: . Salvador Beebe MD, Pathologist NPI- [id number] . 01 Gross description: . Received in formalin labeled "Shakir Crowell, transverse colon polyp," is a single segment of hanna soft tissue measuring 0.7 cm in maximum dimension. The specimen is entirely submitted in cassette A1. (TSD; 09/02/2018) TOB/TOB . 02 Pathologist provided ICD-10: D12.3 . 02 CPT . 869786 Specimen Comment: A courtesy copy of this report has been sent to Specimen Comment: [phone], . Specimen Comment: Report sent to / DR FATIMA Performed at: 01 [facility] [address] [facility] [address], [place] [id number] MD Nabil Moreno MD Phone: [phone] Performed at: 02 [facility] [address] [place], [place] [id number] MD Mo Batista MD Phone: [phone]
== END ==
LOC: SURG 15:30
PROVIDERS: ATTEND Internal Medicine Gastroenterology
DX: D12.3 Benign neoplasm of transverse colon (principal); K29.50 Unspecified chronic gastritis without bleeding; K57.30 Diverticulosis of large intestine without perforation or abscess without bleeding; K64.0 First degree hemorrhoids; I10 Essential (primary) hypertension; I25.2 Old myocardial infarction; F15.90 Other stimulant use, unspecified, uncomplicated; Z86.73 Personal history of transient ischemic attack (TIA), and cerebral infarction without residual deficits; Z85.46 Personal history of malignant neoplasm of prostate; Z72.89 Other problems related to lifestyle; Z79.82 Long term (current) use of aspirin
CPT/HCPCS: 43235; 45380; 88305; J2001; J2704; 45378